=== PATIENT | female | born 1995 | race Caucasian/White ===

== ENCOUNTER 2019-02-21 01:59 | Emergency (ER) | payer OTHER ==
[~2019-02-21] VITALS: Ht 167.6 cm; Wt 65.0 kg
[~2019-02-21 01:59] MED LIST: AZIT250T PO; ONDA4TAB12 PO; RANI-366 PO
[2019-02-21] MEDS ORDERED: normal saline 1000ML IV soln IVB ONE (02:35)
--- NOTE | 2019-02-21 02:42 | NUR ---
Report to [facility].
[2019-02-21 02:46] VITALS: BP 125/86
== END 2019-02-21 02:48 | disposition short-term general hospital (02) ==
LOC: ER 01:59
DX: O20.0 Threatened abortion (principal); O21.9 Vomiting of pregnancy, unspecified; O26.893 Other specified pregnancy related conditions, third trimester; R10.13 Epigastric pain; O99.323 Drug use complicating pregnancy, third trimester; F12.90 Cannabis use, unspecified, uncomplicated; Z88.0 Allergy status to penicillin; Z91.040 Latex allergy status; Z79.899 Other long term (current) drug therapy; Z3A.39 39 weeks gestation of pregnancy
CPT/HCPCS: 99285; J7030; 96360

== ENCOUNTER 2019-12-13 12:30 | Emergency (ER) | payer MEDICAID ==
[~2019-12-13] VITALS: Ht 167.6 cm; Wt 52.0 kg
--- NOTE | 2019-12-13 14:27 | NUR ---
Pt presented with anxiety intetmittently. Symptoms resolved while in lobby. Asymptomatic at this time.
[2019-12-13] MEDS ORDERED: hydrOXYzine 25 MG tablet PO ONE (14:50)
[2019-12-13 15:04] LABS: BASOPHILS # (AUTO) 0.1 X10'3 (0-0.2); BASOPHILS % (AUTO) 0.6 % (0-1); EOSINOPHILS % (AUTO) 0 % (0-6); HEMATOCRIT 41.7 % (35.0-45.0); HEMOGLOBIN 14.3 g/dl (12.0-16.0); LYMPHOCYTES # (AUTO) 1.3 X10'3 (1.1-4.8); LYMPHOCYTES % (AUTO) 12.5 % (21-51); MEAN CORPUSCULAR HEMOGLOBIN 31.4 PG (27.0-31.0); MEAN CORPUSCULAR HGB CONC 34.2 g/dL (33.0-36.5); MEAN CORPUSCULAR VOLUME 91.8 FL (78-98); MEAN PLATELET VOLUME 8.7 FL (7.4-10.4); MONOCYTES # (AUTO) 0.5 X10'3 (0-0.9); MONOCYTES % (AUTO) 5.1 % (2-12); NEUTROPHILS # (AUTO) 8.3 X10'3 (1.8-7.7); NEUTROPHILS % (AUTO) 81.8 % (42-75); PLATELET COUNT 246 X10'3 (140-440); RED BLOOD COUNT 4.54 X10'6 (4.20-5.60); RED CELL DISTRIBUTION WIDTH 15.1 % (11.5-14.5); WHITE BLOOD COUNT 10.2 X10'3 (4.5-11.0)
[2019-12-13 15:06] LABS: URINE HCG NEGATIVE (NEG)
[2019-12-13 15:13] LABS: URINE AMPHETAMINE SCREEN NEGATIVE (Neg); URINE BARBITUATE SCREEN NEGATIVE (Neg); URINE BENZODIAZEPINES SCREEN NEGATIVE (Neg); URINE CANNABINOID SCREEN POSITIVE (Neg); URINE COCAINE SCREEN NEGATIVE (Neg); URINE METHADONE SCREEN NEGATIVE (Neg); URINE OPIATE SCREEN NEGATIVE (Neg); URINE PHENCYCLIDINE SCREEN NEGATIVE (Neg)
[2019-12-13 15:19] LABS: ALANINE AMINOTRANSFERASE 20 U/L (12-78); ALBUMIN 4.2 G/DL (3.4-5.0); ALBUMIN/GLOBULIN RATIO 1.1 (1.1-1.5); ALKALINE PHOSPHATASE 79 IU/L (46-116); ANION GAP 13 (8-16); ASPARTATE AMINO TRANSFERASE 25 U/L (10-37); BILIRUBIN,TOTAL 0.6 MG/DL (0.1-1.0); BLOOD UREA NITROGEN 14 MG/DL (7-18); BUN/CREATININE RATIO 21.5 (6.6-38.0); CALCIUM 9.5 MG/DL (8.5-10.1); CHLORIDE 103 MMOL/L (99-107); CREATININE 0.65 MG/DL (0.40-0.90); GLUCOSE 92 MG/DL (70-104); POTASSIUM 4.3 MMOL/L (3.5-5.1); SODIUM 139 MMOL/L (135-145); TOTAL CARBON DIOXIDE 23.3 MMOL/L (24-32); TOTAL PROTEIN 8.1 G/DL (6.4-8.2); eGFR > 90 ML/MIN
[2019-12-13 15:27] LABS: ETHANOL < 0.010 GM/DL (0.0-0.010)
[2019-12-13 17:37] VITALS: BP 111/49
--- NOTE | 2019-12-13 18:30 | NUR ---
INTRODUCED MYSELF TO PATIENT AND VISITOR. PT HAS HER 9 MONTH BABY ON LAP. VISITOR, WHO IS DARRIAN, BECAME SLIGHTLY AGGRESIVE WANTING TO KNOW PLAN AND "WE'VE BEEN WAITING HERE FOR 7 HOURS!". PLAN EXPLAINED AGAIN TO PT AND FAMILY, [facility] AT BEDSIDE AND ALSO EXPLAINED IT ALL AGAIN. PT VERBALIZED UNDERSTANDING, BUT DARRIAN WAS STILL FRUSTRATED AND LEFT TO GET FOOD.
--- NOTE | 2019-12-13 19:45 | NUR ---
[facility] AT BEDSIDE FOR EVAL
== END 2019-12-13 20:48 ==
LOC: ER 12:30
DX: F41.9 Anxiety disorder, unspecified (principal); F32.9 Major depressive disorder, single episode, unspecified; F12.90 Cannabis use, unspecified, uncomplicated; Z88.0 Allergy status to penicillin; Z91.040 Latex allergy status; Z79.899 Other long term (current) drug therapy
CPT/HCPCS: 36415; 80053; 80305; 80320; 81025; 85025; 99283; Z7610

== ENCOUNTER 2019-12-22 01:27 | Emergency (ER) | payer MEDICAID ==
[~2019-12-22] VITALS: Ht 167.6 cm; Wt 52.3 kg
[2019-12-22 01:28] VITALS: BP 124/85
== END 2019-12-22 01:59 | disposition home or self-care (01) ==
LOC: ER 01:27
DX: S80.211A Abrasion, right knee, initial encounter (principal); F10.920 Alcohol use, unspecified with intoxication, uncomplicated; F12.90 Cannabis use, unspecified, uncomplicated; F32.9 Major depressive disorder, single episode, unspecified; Z88.0 Allergy status to penicillin; Z91.040 Latex allergy status; Z79.899 Other long term (current) drug therapy; V87.7XXA Person injured in collision between other specified motor vehicles (traffic), initial encounter; Y93.89 Activity, other specified; Y92.488 Other paved roadways as the place of occurrence of the external cause; Y99.8 Other external cause status; Y90.0 Blood alcohol level of less than 20 mg/100 ml
CPT/HCPCS: 99283

== ENCOUNTER 2020-11-28 07:03 | Emergency (ER) | payer MEDICAID ==
[~2020-11-28] VITALS: Ht 168.9 cm; Wt 46.1 kg
[2020-11-28 07:35] LABS: CLARITY,URINE CLOUDY (Clear); GLUCOSE, URINE NEGATIVE (Neg); KETONES,URINE TRACE mg/dl (Neg); LEUKOCYTE ESTERASE ,URINE NEGATIVE (Neg); NITRITES, URINE NEGATIVE (Neg); OCCULT BLOOD,URINE NEGATIVE (Neg); PH,URINE 6.5 (4.8-8.0); PROTEIN,URINE 100 mg/dl (Neg)
[2020-11-28] MEDS ORDERED: ondansetron/PF 4mg/2ml inj IV ONE (07:40)
[2020-11-28] MEDS ORDERED: diphenhydrAMINE 50 mg/ml inj IV ONE (07:40)
[2020-11-28] MEDS ORDERED: haloperidol lactate 5mg/ml inj IM ONE (07:40)
[2020-11-28] MEDS ORDERED: normal saline 1000ML IV soln IVB ONE (07:40)
[2020-11-28] MEDS ORDERED: LORazepam 2 mg/ml vial IV ONE (07:40)
[2020-11-28 07:41] LABS: URINE HCG NEGATIVE (NEG)
[2020-11-28 07:43] LABS: COLOR,URINE DARK YELLOW (Yellow); UA COLLECTION TYPE CLN CATCH MIDSTREAM
[2020-11-28 07:46] LABS: MUCUS STRANDS MANY /LPF (Neg); SQUAMOUS EPITHELIAL CELL,UR MANY /LPF (FEW)
[2020-11-28 07:47] LABS: BACTERIA,URINE 1+ /HPF (Neg)
[2020-11-28 07:48] LABS: RBC,URINE 0-2 /HPF (0-2); WBC,URINE 0-4 /HPF (0-4)
[2020-11-28 08:01] LABS: BASOPHILS % (AUTO) 0.4 % (0-1); EOSINOPHILS % (AUTO) 0.3 % (0-6); HEMATOCRIT 47.3 % (35.0-45.0); HEMOGLOBIN 15.8 g/dl (12.0-16.0); LYMPHOCYTES # (AUTO) 1.7 X10'3 (1.1-4.8); LYMPHOCYTES % (AUTO) 17.4 % (21-51); MEAN CORPUSCULAR HEMOGLOBIN 30.8 PG (27.0-31.0); MEAN CORPUSCULAR HGB CONC 33.3 g/dL (33.0-36.5); MEAN CORPUSCULAR VOLUME 92.3 FL (78-98); MEAN PLATELET VOLUME 9.6 FL (7.4-10.4); MONOCYTES # (AUTO) 0.7 X10'3 (0-0.9); MONOCYTES % (AUTO) 7.6 % (2-12); NEUTROPHILS # (AUTO) 7.1 X10'3 (1.8-7.7); NEUTROPHILS % (AUTO) 74.3 % (42-75); PLATELET COUNT 253 X10'3 (140-440); RED BLOOD COUNT 5.13 X10'6 (4.20-5.60); RED CELL DISTRIBUTION WIDTH 13.6 % (11.5-14.5); WHITE BLOOD COUNT 9.6 X10'3 (4.5-11.0)
[2020-11-28 08:22] LABS: ALANINE AMINOTRANSFERASE 31 U/L (12-78); ALBUMIN 4.5 G/DL (3.4-5.0); ALBUMIN/GLOBULIN RATIO 1.1 (1.1-1.5); ALKALINE PHOSPHATASE 64 IU/L (46-116); ANION GAP 12 (8-16); ASPARTATE AMINO TRANSFERASE 18 U/L (10-37); BILIRUBIN,TOTAL 0.9 MG/DL (0.1-1.0); BLOOD UREA NITROGEN 21 MG/DL (7-18); BUN/CREATININE RATIO 22.8 (6.6-38.0); CALCIUM 9.6 MG/DL (8.5-10.1); CHLORIDE 102 MMOL/L (99-107); CREATININE 0.92 MG/DL (0.40-0.90); GLUCOSE 110 MG/DL (70-104); LIPASE 94 U/L (73-393); POTASSIUM 3.3 MMOL/L (3.5-5.1); SODIUM 137 MMOL/L (135-145); TOTAL CARBON DIOXIDE 22.7 MMOL/L (24-32); TOTAL PROTEIN 8.7 G/DL (6.4-8.2); eGFR 74 ML/MIN
[2020-11-28 08:53] VITALS: BP 118/71
[2020-11-28] MEDS ORDERED: ONDA4TAB6 PO (09:08)
== END 2020-11-28 09:24 | disposition home or self-care (01) ==
LOC: ER 07:03
DX: R11.15 Cyclical vomiting syndrome unrelated to migraine (principal); R11.2 Nausea with vomiting, unspecified; R10.84 Generalized abdominal pain; F32.9 Major depressive disorder, single episode, unspecified; F12.90 Cannabis use, unspecified, uncomplicated; Z88.0 Allergy status to penicillin; Z91.040 Latex allergy status; Z79.2 Long term (current) use of antibiotics; Z79.899 Other long term (current) drug therapy
CPT/HCPCS: 36415; 80053; 81001; 81025; 83690; 85025; 96372; 96374; 96375; 99284; J1200; J1630; J2060; J2405; J7030

== ENCOUNTER 2020-12-04 18:54 | Emergency (ER) | payer MEDICAID ==
[~2020-12-04] VITALS: Ht 167.6 cm; Wt 50.0 kg
[~2020-12-04 18:54] MED LIST changes: +ONDA4TAB6 PO
[2020-12-04 19:01] VITALS: BP 125/83
== END 2020-12-04 19:36 | disposition left against medical advice (07) ==
LOC: ER 18:54
DX: R11.10 Vomiting, unspecified (principal); Z53.21 Procedure and treatment not carried out due to patient leaving prior to being seen by health care provider

== ENCOUNTER 2023-03-17 04:46 | Emergency (ER) | payer MEDICAID ==
[~2023-03-17] VITALS: Ht 167.6 cm; Wt 75.0 kg
[2023-03-17] MEDS ORDERED: mag hydrox/Alum hydrox/simeth 30ml oral suspension PO STA (05:06)
[2023-03-17] MEDS ORDERED: ondansetron/PF 4mg/2ml inj IV STA (05:06)
[2023-03-17] MEDS ORDERED: LIDOcaine Viscous 15ml cup MM ONE (05:10)
[2023-03-17] MEDS ORDERED: normal saline 1000ML IV soln IVB ONE ×2 (05:10→07:35)
[2023-03-17 05:42] LABS: BASOPHILS % (AUTO) 0.3 % (0-1); EOSINOPHILS % (AUTO) 0 % (0-6); HEMATOCRIT 34.9 % (35.0-45.0); HEMOGLOBIN 11.2 g/dl (12.0-16.0); LYMPHOCYTES # (AUTO) 1.4 X10'3 (1.1-4.8); LYMPHOCYTES % (AUTO) 9.1 % (21-51); MEAN CORPUSCULAR HEMOGLOBIN 28.2 PG (27.0-31.0); MEAN CORPUSCULAR HGB CONC 32.2 g/dL (33.0-36.5); MEAN CORPUSCULAR VOLUME 87.4 FL (78-98); MEAN PLATELET VOLUME 9.8 FL (7.4-10.4); MONOCYTES # (AUTO) 0.5 X10'3 (0-0.9); MONOCYTES % (AUTO) 3.1 % (2-12); NEUTROPHILS % (AUTO) 87.5 % (42-75); PLATELET COUNT 245 X10'3 (140-440); RED BLOOD COUNT 3.99 X10'6 (4.20-5.60); RED CELL DISTRIBUTION WIDTH 14.3 % (11.5-14.5); WHITE BLOOD COUNT 14.9 X10'3 (4.5-11.0)
[2023-03-17 05:52] LABS: ALANINE AMINOTRANSFERASE 18 U/L (12-78); ALBUMIN 3.2 G/DL (3.4-5.0); ALBUMIN/GLOBULIN RATIO 0.8 (1.1-1.5); ALKALINE PHOSPHATASE 95 IU/L (46-116); ANION GAP 15 (8-16); ASPARTATE AMINO TRANSFERASE 20 U/L (10-37); BILIRUBIN,TOTAL 0.4 MG/DL (0.1-1.0); BLOOD UREA NITROGEN 9 MG/DL (7-18); BUN/CREATININE RATIO 11.5 (10.0-20.0); CALCIUM 9.1 MG/DL (8.5-10.1); CHLORIDE 104 MMOL/L (99-107); CREATININE 0.78 MG/DL (0.40-0.90); GLUCOSE 128 MG/DL (70-104); LIPASE 54 U/L (73-393); POTASSIUM 3.5 MMOL/L (3.5-5.1); SODIUM 137 MMOL/L (135-145); TOTAL CARBON DIOXIDE 17.6 MMOL/L (24-32); TOTAL PROTEIN 7.3 G/DL (6.4-8.2); eGFR 88 ML/MIN
[2023-03-17] MEDS ORDERED: proCHLORperazine 10 MG/2 ml inj IV ONE (05:55)
[2023-03-17 06:40] LABS: URINE HCG POSITIVE (NEG)
[2023-03-17 06:47] LABS: CLARITY,URINE SLIGHTLY CLOUDY (Clear); COLOR,URINE YELLOW (Yellow); GLUCOSE, URINE NEGATIVE (Neg); KETONES,URINE >=80 mg/dl (Neg); LEUKOCYTE ESTERASE ,URINE TRACE (Neg); NITRITES, URINE NEGATIVE (Neg); OCCULT BLOOD,URINE NEGATIVE (Neg); PH,URINE 6.5 (4.8-8.0); PROTEIN,URINE 30 mg/dl (Neg); UROBILINOGEN,URINE 0.2 E.U/dL (0.2-1.0)
[2023-03-17 06:50] LABS: UA COLLECTION TYPE CLN CATCH MIDSTREAM
[2023-03-17 06:53] LABS: BACTERIA,URINE 4+ /HPF (Neg); RBC,URINE NONE SEEN /HPF (0-2); SQUAMOUS EPITHELIAL CELL,UR MODERATE /LPF (FEW); WBC,URINE 20-30 /HPF (0-4)
[2023-03-17 06:54] LABS: MUCUS STRANDS MODERATE /LPF (Neg); WBC CLUMPS,URINE FEW /HPF (NEGATIVE)
--- NOTE | 2023-03-17 07:20 | NUR ---
Dr Moreno at Bedside.
[2023-03-17] MEDS ORDERED: CefTRIAXone/D5W-Rocephin 1gm 50 ML IV ONE (07:35)
[2023-03-17] MEDS ORDERED: ondansetron/PF 4mg/2ml inj IV ONE (07:35)
[2023-03-17 07:53] VITALS: BP 121/62
[2023-03-17 09:00] LABS: GASTRIC OCCULT BLOOD POSITIVE (Neg)
[2023-03-17] MEDS ORDERED: ONDA4TAB12 PO ×3 (09:27→18:57)
[2023-03-17] MEDS ORDERED: CEPH250T PO ×3 (09:27→18:57)
[2023-03-17 10:49] LABS: BETA HCG,QUANTITATIVE 30241 mIU/ml
[2023-03-17 11:18] LABS: ETHANOL < 0.010 GM/DL (0.0-0.010)
[2023-03-17 12:00] LABS: URINE AMPHETAMINE SCREEN NEGATIVE (Neg); URINE BARBITUATE SCREEN NEGATIVE (Neg); URINE BENZODIAZEPINES SCREEN NEGATIVE (Neg); URINE CANNABINOID SCREEN POSITIVE (Neg); URINE COCAINE SCREEN NEGATIVE (Neg); URINE METHADONE SCREEN NEGATIVE (Neg); URINE OPIATE SCREEN NEGATIVE (Neg); URINE PHENCYCLIDINE SCREEN NEGATIVE (Neg)
== END 2023-03-17 09:55 | disposition home or self-care (01) ==
LOC: ER 04:47
DX: O21.9 Vomiting of pregnancy, unspecified (principal); O23.43 Unspecified infection of urinary tract in pregnancy, third trimester; Z3A.32 32 weeks gestation of pregnancy
CPT/HCPCS: 36415; 76805; 80053; 80305; 80320; 81001; 81025; 82271; 83690; 84702; 85025; 86900; 86901; 87077; 87088; 87186; 96361; 96365; 96375; 96376; 99284; J0696; J0780; J2405; J7030